=== PATIENT | female | born 1965 | race Caucasian/White ===

== ENCOUNTER → 2019-06-29 | Outpatient (CLI) | payer BC ==
[~2019-06-29] MED LIST: ACET-1600 PO; ASCO100019 PO; CHOL10003 PO; GABA300C10 PO; MULT-658 PO; POTA99TA2 PO; VITA1CAP7 PO; collagen peptides PO; magnesium PO
[2019-06-29 10:32] LABS: MICROSCOPIC NOT IND
[2019-06-29 10:36] LABS: BASOPHILS # (AUTO) 0.03 x10^3/uL (0-0.1); BASOPHILS % (AUTO) 1 % (0-1); EOSINOPHILS % (AUTO) 2 % (1-7); LYMPHOCYTES # (AUTO) 1.65 x10^3/uL (1-3.4); LYMPHOCYTES % (AUTO) 28 % (22-44); MD NO; MEAN CORPUSCULAR HEMOGLOBIN 31.3 pg (27.0-34.8); MEAN CORPUSCULAR HGB CONC 33.4 g/dL (32.4-35.8); MEAN CORPUSCULAR VOLUME 93.7 fL (80-100); MEAN PLATELET VOLUME 8.9 fL (7.4-10.4); MONOCYTES # (AUTO) 0.45 x10^3/uL (0.2-0.8); MONOCYTES % (AUTO) 8 % (2-9); NEUTROPHILS # (AUTO) 3.62 x10^3/uL (1.8-6.8); NEUTROPHILS % (AUTO) 62 % (42-75); PLATELET COUNT 256 x10^3/uL (130-400); RED BLOOD COUNT 4.51 x10^6/uL (3.82-5.3); RED CELL DISTRIBUTION WIDTH 12.7 % (9.6-15.2)
[2019-06-29 10:37] LABS: CULTURE INDICATED? NO
[2019-06-29 10:41] LABS: INTERNATIONAL NORMALIZED RATIO 0.93 (0.93-1.1); PROTHROMBIN TIME 9.9 Seconds (9.6-11.5)
[2019-06-29 10:44] LABS: CHLORIDE 110 mmol/L (98-107)
[2019-06-29 10:48] LABS: ANION GAP 4 mmol/L (5-15); CREATININE 0.74 mg/dL (0.55-1.02)
== END | disposition home or self-care (01) ==
LOC: STAR 08:56
PROVIDERS: ATTEND Neurological Surgery
DX: Z01.818 Encounter for other preprocedural examination (principal); Z01.811 Encounter for preprocedural respiratory examination; Z01.812 Encounter for preprocedural laboratory examination; M47.817 Spondylosis without myelopathy or radiculopathy, lumbosacral region; D33.4 Benign neoplasm of spinal cord; R79.1 Abnormal coagulation profile; R82.90 Unspecified abnormal findings in urine; R94.31 Abnormal electrocardiogram [ECG] [EKG]
CPT/HCPCS: 36415; 71046; 72110; 80048; 81003; 85025; 85610; 85730; 93005; U0001

== ENCOUNTER 2019-07-03 05:32 | Inpatient (IN) | payer BC, OTHER ==
[~2019-07-03] VITALS: Ht 166.4 cm; Wt 121.0 kg
[2019-07-03] MEDS ORDERED: LACTATED RINGERS 1,000 ML IV SCH (06:12)
[2019-07-03] MEDS ORDERED: CHLORHEXIDINE 15 ML UDC MM ONE (06:30)
[2019-07-03 06:39] LABS: HCG UR SG 1.025 (1.003-1.030)
[2019-07-03] MEDS ORDERED: FENTANYL PF 100 MCG/2ML ONE ×3 (06:47→13:15)
[2019-07-03] MEDS ORDERED: CEFAZOLIN 1,000 MG ONE (06:47)
[2019-07-03] MEDS ORDERED: DEXAMETHASONE 4 MG/ML, 1ML ONE ×2 (06:47→07:32)
[2019-07-03] MEDS ORDERED: MIDAZOLAM 1 MG/ML, 2ML ONE (06:47)
[2019-07-03] MEDS ORDERED: ONDANSETRON 2MG/ML, 2ML ONE (06:47)
[2019-07-03] MEDS ORDERED: PROPOFOL 10 MG/ML, 20ML ONE (06:47)
[2019-07-03] MEDS ORDERED: PROPOFOL 50 ML ONE ×4 (06:49→11:18)
[2019-07-03] MEDS ORDERED: BUPIVACAINE/PF-EPI 0.25% 1:200K ONE (07:00)
[2019-07-03] MEDS ORDERED: THROMBIN 5,000 UNIT VIAL TP ONE (07:00)
[2019-07-03] MEDS ORDERED: BACITRACIN OINT 500U/GM, 15 GM ONE (07:00)
[2019-07-03] MEDS ORDERED: VANCOMYCIN 1,000 MG ONE (07:01)
[2019-07-03] MEDS ORDERED: BACITRACIN 50,000 UNIT ONE (07:01)
[2019-07-03] MEDS ORDERED: SCOPOLAMINE 1MG PATCH TD ONE (07:12)
[2019-07-03] MEDS ORDERED: GABAPENTIN 300 MG CAPSULE ONE (07:12)
[2019-07-03] MEDS ORDERED: ACETAMINOPHEN 500 MG TABLET ONE (07:12)
[2019-07-03] MEDS ORDERED: OXYcodone 5 MG/5 ML ORAL.SOL UDC PO PRN (07:30)
[2019-07-03] MEDS ORDERED: LORazepam 2 MG/ML, 1ML IVPush PRN (07:30)
[2019-07-03] MEDS ORDERED: GABAPENTIN 300 MG CAPSULE PO ONE (07:30)
[2019-07-03] MEDS ORDERED: PROMETHAZINE 25 MG/ML, 1ML IV PRN (07:30)
[2019-07-03] MEDS ORDERED: SCOPOLAMINE 1MG PATCH TD SCH (07:30)
[2019-07-03] MEDS ORDERED: ACETAMINOPHEN 500 MG TABLET PO ONE (07:30)
[2019-07-03] MEDS ORDERED: MEPERIDINE/PF 25MG/ML,1ML IVPush PRN (07:30)
[2019-07-03] MEDS ORDERED: EPHEDRINE 50 MG/ML, 1ML ONE (07:32)
[2019-07-03] MEDS ORDERED: SUCCINYLCHOLINE 20 MG/ML, 10ML ONE (07:32)
[2019-07-03] MEDS ORDERED: BUPIVACAINE/PF 0.25% ONE (08:04)
[2019-07-03] MEDS ORDERED: OXYcodone 5 MG/5 ML ORAL.SOL UDC ONE (13:15)
[2019-07-03] MEDS: FENTANYL PF 100 MCG/2ML IV PRN ×2 (13:20→13:32)
[2019-07-03] MEDS ORDERED: METHOCARBAMOL 1,000 MG in DEXTROSE 5% 100 ML IV ONE (13:30)
[2019-07-03] MEDS ORDERED: HYDROmorphone 1 MG/ML, 1ML INJ ONE (13:34)
[2019-07-03] MEDS: HYDROmorphone 2 MG/ML, 1ML IVPush PRN ×2 (13:37→13:48)
[2019-07-03] MEDS ORDERED: MAGNESIUM HYDROXIDE 8%, 30ML UDC PO PRN (15:00)
[2019-07-03] MEDS ORDERED: BISACODYL 10 MG SUPP PR PRN (15:00)
[2019-07-03] MEDS ORDERED: HYDROcodone/APAP 5/325 TABLET PO PRN (15:00)
[2019-07-03] MEDS ORDERED: PROMETHAZINE 25 MG/ML, 1ML IM PRN (15:00)
[2019-07-03] MEDS ORDERED: HYDROmorphone 2MG TABLET PO PRN (15:00)
[2019-07-03] MEDS ORDERED: DIPHENHYDRAMINE 50 MG/ML, 1ML IVPush PRN (15:00)
[2019-07-03] MEDS ORDERED: DIPHENHYDRAMINE 50 MG/ML, 1ML IM PRN (15:00)
[2019-07-03] MEDS ORDERED: HYDROmorphone 2 MG/ML, 1ML IM PRN (15:00)
[2019-07-03] MEDS: NS + 20MEQ KCL 1,000 ML IV SCH (16:41)
[2019-07-03] MEDS: GABAPENTIN 300 MG CAPSULE PO SCH ×2 (16:41→22:21)
[2019-07-03] MEDS: CEFAZOLIN PMX 1GM/50ML 50 ML IVPB SCH (16:41)
[2019-07-03] MEDS: OXYcodone IR 5MG TABLET PO PRN (16:45)
[2019-07-03 18:50] VITALS: BP 155/84
[2019-07-03] MEDS: METHOCARBAMOL 750 MG TABLET PO SCH (22:20)
[2019-07-03 23:35] VITALS: BP 131/72
[2019-07-04] MEDS: CEFAZOLIN PMX 1GM/50ML 50 ML IVPB SCH (00:34)
[2019-07-04] MEDS: OXYcodone IR 5MG TABLET PO PRN ×4 (00:35→21:53)
[2019-07-04] MEDS: NS + 20MEQ KCL 1,000 ML IV SCH ×3 (01:00→21:00)
[2019-07-04 03:31] VITALS: BP 152/83
[2019-07-04] MEDS: ONDANSETRON 2MG/ML, 2ML IV PRN ×2 (06:19→21:55)
[2019-07-04] MEDS: METHOCARBAMOL 750 MG TABLET PO SCH ×3 (06:22→21:53)
[2019-07-04 07:05] VITALS: BP 126/76
[2019-07-04] MEDS: SENNA/DOCUSATE TABLET PO SCH (09:03)
[2019-07-04] MEDS: MULTIVITAMIN 1 TABLET PO SCH (09:03)
[2019-07-04] MEDS: ASCORBIC ACID 500 MG TABLET PO SCH (09:03)
[2019-07-04] MEDS: CHOLECALCIFEROL 1,000 UNIT TABLET PO SCH (09:03)
[2019-07-04] MEDS: GABAPENTIN 300 MG CAPSULE PO SCH ×3 (09:03→21:53)
[2019-07-04] MEDS: MAGNESIUM OXIDE 400 MG TABLET PO SCH (09:03)
[2019-07-04 12:30] VITALS: BP 146/80
[2019-07-04] MEDS: BUTALB/APAP/CAFFEINE 50MG/325MG/40MG PO PRN (12:34)
[2019-07-04] MEDS: ENOXAPARIN 40 MG/0.4 ML SQ SCH (13:22)
[2019-07-04 18:50] VITALS: BP 143/81
[2019-07-05 01:22] VITALS: BP 150/78
[2019-07-05] MEDS: NS + 20MEQ KCL 1,000 ML IV SCH ×2 (05:41→17:00)
[2019-07-05] MEDS: METHOCARBAMOL 750 MG TABLET PO SCH ×3 (05:48→21:51)
[2019-07-05] MEDS: BUTALB/APAP/CAFFEINE 50MG/325MG/40MG PO PRN (05:48)
[2019-07-05 07:16] VITALS: BP 138/82
[2019-07-05] MEDS: MAGNESIUM OXIDE 400 MG TABLET PO SCH (08:27)
[2019-07-05] MEDS: SENNA/DOCUSATE TABLET PO SCH (08:28)
[2019-07-05] MEDS: MULTIVITAMIN 1 TABLET PO SCH (08:28)
[2019-07-05] MEDS: GABAPENTIN 300 MG CAPSULE PO SCH ×3 (08:28→21:51)
[2019-07-05] MEDS: CHOLECALCIFEROL 1,000 UNIT TABLET PO SCH (08:28)
[2019-07-05] MEDS: ASCORBIC ACID 500 MG TABLET PO SCH (08:28)
[2019-07-05] MEDS: OXYcodone IR 5MG TABLET PO PRN ×2 (10:09→14:09)
[2019-07-05 13:02] VITALS: BP 114/78
[2019-07-05] MEDS: ENOXAPARIN 40 MG/0.4 ML SQ SCH (14:09)
[2019-07-05 19:13] VITALS: BP 105/52
[2019-07-06 00:34] VITALS: BP 106/69
[2019-07-06] MEDS: NS + 20MEQ KCL 1,000 ML IV SCH (03:00)
[2019-07-06 04:43] LABS: CREATININE 0.66 mg/dL (0.55-1.02)
[2019-07-06] MEDS: METHOCARBAMOL 750 MG TABLET PO SCH (06:40)
[2019-07-06] MEDS: OXYcodone IR 5MG TABLET PO PRN ×2 (06:41→11:23)
[2019-07-06 07:34] VITALS: BP 104/76
[2019-07-06] MEDS: ASCORBIC ACID 500 MG TABLET PO SCH (08:11)
[2019-07-06] MEDS: SENNA/DOCUSATE TABLET PO SCH (08:11)
[2019-07-06] MEDS: MAGNESIUM OXIDE 400 MG TABLET PO SCH (08:11)
[2019-07-06] MEDS: MULTIVITAMIN 1 TABLET PO SCH (08:11)
[2019-07-06] MEDS: CHOLECALCIFEROL 1,000 UNIT TABLET PO SCH (08:12)
[2019-07-06] MEDS: GABAPENTIN 300 MG CAPSULE PO SCH (08:12)
[2019-07-06] MEDS ORDERED: OXYC5CAP2 PO ×2 (09:36→10:11)
[2019-07-06] MEDS ORDERED: METH750T87 PO ×2 (09:36→10:11)
== END 2019-07-06 11:34 | disposition home or self-care (01) | DRG 519 ==
LOC: ORIP 05:32 → 4NE 14:11
PROVIDERS: ADMIT Neurological Surgery; ATTEND Neurological Surgery
PROC: 01NB0ZZ Release Lumbar Nerve, Open Approach (ICD-10-PCS; 2019-07-03)
PROC: 01NR0ZZ Release Sacral Nerve, Open Approach (ICD-10-PCS; 2019-07-03)
PROC: 00BY0ZZ Excision of Lumbar Spinal Cord, Open Approach (ICD-10-PCS; principal; 2019-07-03 07:30)
DX: M47.816 Spondylosis without myelopathy or radiculopathy, lumbar region (principal); Z68.41 Body mass index [BMI] 40.0-44.9, adult; D36.10 Benign neoplasm of peripheral nerves and autonomic nervous system, unspecified; E66.01 Morbid (severe) obesity due to excess calories; M48.061 Spinal stenosis, lumbar region without neurogenic claudication; M54.10 Radiculopathy, site unspecified; D49.7 Neoplasm of unspecified behavior of endocrine glands and other parts of nervous system
CPT/HCPCS: 36415; 72100; 81025; 82565; 88305; 95938; 95941; C1729; G0378; J0690; J1100; J1170; J1650; J2250; J2405; J2704; J3010; J3370; J3480; J3490; J0330; J2800; J7120

== ENCOUNTER 2019-07-21 05:44 | Inpatient (IN) | payer BC ==
[~2019-07-21] VITALS: Ht 165.1 cm; Wt 116.0 kg
[~2019-07-21 05:44] MED LIST changes: +METH750T87 PO; +OXYC5CAP2 PO
[2019-07-21 06:08] VITALS: BP 152/97
[2019-07-21] MEDS ORDERED: LACTATED RINGERS 1,000 ML IV SCH (06:16)
[2019-07-21] MEDS ORDERED: CHLORHEXIDINE 15 ML UDC MM STA (06:16)
[2019-07-21] MEDS ORDERED: BACITRACIN 50,000 UNIT ONE ×2 (06:34→07:34)
[2019-07-21] MEDS ORDERED: BACITRACIN OINT 500U/GM, 15 GM ONE (06:34)
[2019-07-21] MEDS ORDERED: VANCOMYCIN 1,000 MG ONE (06:34)
[2019-07-21] MEDS ORDERED: BUPIVACAINE/PF-EPI 0.25% 1:200K ONE (06:34)
[2019-07-21 06:45] LABS: HCG UR SG 1.019 (1.003-1.030)
[2019-07-21] MEDS ORDERED: DEXAMETHASONE 4 MG/ML, 1ML ONE (06:47)
[2019-07-21] MEDS ORDERED: ROCURONIUM 10MG/ML,5ML ONE (06:47)
[2019-07-21] MEDS ORDERED: PROPOFOL 10 MG/ML, 20ML ONE (06:47)
[2019-07-21] MEDS ORDERED: FENTANYL PF 250 MCG/5ML ONE (06:47)
[2019-07-21] MEDS ORDERED: MIDAZOLAM 1 MG/ML, 2ML ONE (06:47)
[2019-07-21] MEDS ORDERED: SUCCINYLCHOLINE 20 MG/ML, 10ML ONE (06:47)
[2019-07-21] MEDS ORDERED: EPHEDRINE 50 MG/ML, 1ML ONE (06:58)
[2019-07-21] MEDS ORDERED: CEFAZOLIN 1,000 MG ONE (06:58)
[2019-07-21] MEDS ORDERED: ONDANSETRON 2MG/ML, 2ML ONE (06:58)
[2019-07-21] MEDS ORDERED: ALBUTEROL SULFATE 2.5 MG/3 ML NPPB PRN (07:30)
[2019-07-21] MEDS ORDERED: ACETAMINOPHEN 325 MG TABLET PO PRN (07:30)
[2019-07-21] MEDS ORDERED: DIPHENHYDRAMINE 50 MG/ML, 1ML IVPush PRN ×2 (07:30→11:00)
[2019-07-21] MEDS ORDERED: EPHEDRINE 50 MG/ML, 1ML IVPush PRN (07:30)
[2019-07-21] MEDS ORDERED: MIDAZOLAM 1 MG/ML, 2ML IV PRN (07:30)
[2019-07-21] MEDS ORDERED: LABETALOL 5MG/ML, 20ML IV PRN ×2 (07:30→11:00)
[2019-07-21] MEDS ORDERED: ONDANSETRON 2MG/ML, 2ML IVPush PRN (07:30)
[2019-07-21] MEDS ORDERED: OXYcodone 5 MG/5 ML ORAL.SOL UDC PO PRN (07:30)
[2019-07-21] MEDS ORDERED: PROMETHAZINE 25 MG/ML, 1ML IVPush PRN (07:30)
[2019-07-21] MEDS ORDERED: DIAZEPAM 5 MG/ML, 2ML IVPush PRN (07:30)
[2019-07-21] MEDS ORDERED: hydrALAzine 20 MG/ML, 1ML IV PRN (07:30)
[2019-07-21] MEDS ORDERED: MEPERIDINE/PF 25MG/0.5ML IVPush PRN (07:30)
[2019-07-21] MEDS ORDERED: PROMETHAZINE 12.5 MG SUPP PR PRN (07:30)
[2019-07-21] MEDS ORDERED: FENTANYL PF 100 MCG/2ML ONE ×3 (08:00→09:01)
[2019-07-21] MEDS ORDERED: OXYcodone 5 MG/5 ML ORAL.SOL UDC ONE (08:42)
[2019-07-21] MEDS: FENTANYL PF 100 MCG/2ML IV PRN ×4 (08:45→09:25)
[2019-07-21] MEDS ORDERED: HYDROmorphone 1 MG/ML, 1ML INJ ONE (09:01)
[2019-07-21] MEDS ORDERED: MEPERIDINE/PF 25MG/ML,1ML ONE (09:02)
[2019-07-21] MEDS: HYDROmorphone 1 MG/ML, 1ML INJ IVPush PRN ×2 (09:44→09:54)
[2019-07-21 10:28] VITALS: BP 143/90
[2019-07-21] MEDS ORDERED: OXYcodone IR 5MG TABLET PO PRN ×4 (11:00→15:00)
[2019-07-21] MEDS ORDERED: DIPHENHYDRAMINE 50 MG/ML, 1ML IM PRN (11:00)
[2019-07-21] MEDS ORDERED: HYDROmorphone 2 MG/ML, 1ML IVPush PRN (11:00)
[2019-07-21] MEDS ORDERED: ONDANSETRON 2MG/ML, 2ML IV PRN (11:00)
[2019-07-21] MEDS ORDERED: BISACODYL 10 MG SUPP PR PRN (11:00)
[2019-07-21] MEDS ORDERED: MAGNESIUM HYDROXIDE 8%, 30ML UDC PO PRN (11:00)
[2019-07-21] MEDS ORDERED: DIPHENHYDRAMINE 25 MG CAPSULE PO PRN (11:00)
[2019-07-21] MEDS ORDERED: PROMETHAZINE 25 MG/ML, 1ML IM PRN (11:00)
[2019-07-21] MEDS: LABETALOL 5MG/ML, 20ML IV SCH ×2 (11:00→19:00)
[2019-07-21] MEDS ORDERED: ACETAMINOPHEN 650 MG SUPP PR PRN (11:00)
[2019-07-21] MEDS: METHOCARBAMOL 750 MG TABLET PO SCH ×3 (11:01→20:48)
[2019-07-21] MEDS: NS + 20MEQ KCL 1,000 ML IV SCH ×2 (11:01→20:48)
[2019-07-21 13:05] VITALS: BP 113/77
[2019-07-21] MEDS: CEFAZOLIN PMX 1GM/50ML 50 ML IVPB SCH ×2 (15:06→23:24)
[2019-07-21] MEDS: ACETAMINOPHEN 500 MG TABLET PO PRN ×2 (15:06→20:51)
[2019-07-21] MEDS: GABAPENTIN 300 MG CAPSULE PO SCH ×2 (16:00→20:46)
[2019-07-21 20:25] VITALS: BP 149/93
[2019-07-21] MEDS: DOXYCYCLINE 100MG TABLET PO SCH (20:46)
[2019-07-22 00:39] VITALS: BP 113/66
[2019-07-22] MEDS: METHOCARBAMOL 750 MG TABLET PO SCH ×4 (03:00→20:36)
[2019-07-22] MEDS: LABETALOL 5MG/ML, 20ML IV SCH (03:00)
[2019-07-22 04:47] VITALS: BP 128/69
[2019-07-22] MEDS: NS + 20MEQ KCL 1,000 ML IV SCH ×2 (04:55→17:00)
[2019-07-22 05:07] LABS: CREATININE 0.66 mg/dL (0.55-1.02)
[2019-07-22 08:00] VITALS: BP 126/82
[2019-07-22] MEDS: CHOLECALCIFEROL 1,000 UNIT TABLET PO SCH (09:07)
[2019-07-22] MEDS: SENNA/DOCUSATE TABLET PO SCH (09:07)
[2019-07-22] MEDS: GABAPENTIN 300 MG CAPSULE PO SCH ×3 (09:07→20:35)
[2019-07-22] MEDS: MULTIVITAMIN 1 TABLET PO SCH (09:08)
[2019-07-22] MEDS: MULTIVITS,STRESS FORMULA 1 TABLET PO SCH (09:08)
[2019-07-22] MEDS: ASCORBIC ACID 500 MG TABLET PO SCH (09:08)
[2019-07-22] MEDS: DOXYCYCLINE 100MG TABLET PO SCH ×2 (09:08→20:35)
[2019-07-22] MEDS: ENOXAPARIN 40 MG/0.4 ML SQ SCH (09:09)
[2019-07-22] MEDS: ACETAMINOPHEN 500 MG TABLET PO PRN ×3 (09:22→20:36)
[2019-07-22 12:47] VITALS: BP 127/78
[2019-07-22] MEDS: MAGNESIUM OXIDE 400 MG TABLET PO SCH (14:36)
[2019-07-22 19:35] LABS: BASOPHILS # (AUTO) 0.03 x10^3/uL (0-0.1); BASOPHILS % (AUTO) 1 % (0-1); EOSINOPHILS # (AUTO) 0.08 x10^3/uL (0-0.4); EOSINOPHILS % (AUTO) 1 % (1-7); HCT (SEDRATE) 37.7 % (34.6-47.8); LYMPHOCYTES # (AUTO) 2.48 x10^3/uL (1-3.4); LYMPHOCYTES % (AUTO) 35 % (22-44); MD NO; MEAN CORPUSCULAR HEMOGLOBIN 30.7 pg (27.0-34.8); MEAN CORPUSCULAR HGB CONC 33.4 g/dL (32.4-35.8); MEAN CORPUSCULAR VOLUME 92.1 fL (80-100); MEAN PLATELET VOLUME 8.1 fL (7.4-10.4); MONOCYTES # (AUTO) 0.52 x10^3/uL (0.2-0.8); MONOCYTES % (AUTO) 7 % (2-9); NEUTROPHILS # (AUTO) 3.91 x10^3/uL (1.8-6.8); NEUTROPHILS % (AUTO) 56 % (42-75); PLATELET COUNT 319 x10^3/uL (130-400); RED BLOOD COUNT 4.01 x10^6/uL (3.82-5.3); RED CELL DISTRIBUTION WIDTH 11.8 % (9.6-15.2)
[2019-07-22 20:19] VITALS: BP 134/91
[2019-07-23 01:55] VITALS: BP 148/87
[2019-07-23] MEDS: NS + 20MEQ KCL 1,000 ML IV SCH ×2 (02:48→13:00)
[2019-07-23] MEDS: METHOCARBAMOL 750 MG TABLET PO SCH ×3 (02:49→15:00)
[2019-07-23 06:51] VITALS: BP 126/81
[2019-07-23] MEDS: CHOLECALCIFEROL 1,000 UNIT TABLET PO SCH ×2 (09:00→13:26)
[2019-07-23] MEDS: ASCORBIC ACID 500 MG TABLET PO SCH ×2 (09:00→13:26)
[2019-07-23] MEDS: MULTIVITAMIN 1 TABLET PO SCH ×2 (09:00→13:21)
[2019-07-23] MEDS: MULTIVITS,STRESS FORMULA 1 TABLET PO SCH ×2 (09:00→13:25)
[2019-07-23] MEDS: ENOXAPARIN 40 MG/0.4 ML SQ SCH (09:21)
[2019-07-23] MEDS: ACETAMINOPHEN 500 MG TABLET PO PRN (09:22)
[2019-07-23] MEDS: DOXYCYCLINE 100MG TABLET PO SCH (09:23)
[2019-07-23] MEDS: SENNA/DOCUSATE TABLET PO SCH (09:25)
[2019-07-23] MEDS: GABAPENTIN 300 MG CAPSULE PO SCH (09:26)
[2019-07-23 12:45] VITALS: BP 120/78
[2019-07-23] MEDS: MAGNESIUM OXIDE 400 MG TABLET PO SCH (13:23)
[2019-07-23] MEDS ORDERED: LINE600T12 PO (15:01)
== END 2019-07-23 15:31 | disposition home or self-care (01) | DRG 909 ==
LOC: ORIP 05:44 → EDSTATUS 07:00 → 4NE 10:22
PROVIDERS: ADMIT Neurological Surgery; ATTEND Neurological Surgery
PROC: 0QB00ZZ Excision of Lumbar Vertebra, Open Approach (ICD-10-PCS; 2019-07-21)
PROC: 0QB10ZZ Excision of Sacrum, Open Approach (ICD-10-PCS; principal; 2019-07-21 07:00)
DX: T81.32XA Disruption of internal operation (surgical) wound, not elsewhere classified, initial encounter (principal); E66.01 Morbid (severe) obesity due to excess calories; D36.10 Benign neoplasm of peripheral nerves and autonomic nervous system, unspecified; M48.061 Spinal stenosis, lumbar region without neurogenic claudication; M47.816 Spondylosis without myelopathy or radiculopathy, lumbar region; Z86.14 Personal history of Methicillin resistant Staphylococcus aureus infection; Z80.1 Family history of malignant neoplasm of trachea, bronchus and lung
CPT/HCPCS: 36415; 81025; 82565; 85025; 85651; 86140; 87070; 87077; 87102; 87147; 87186; 87205; G0378; J0690; J1100; J1170; J1650; J2175; J2250; J2405; J2704; J3010; J3370; J3480; J0330; J7120